=== PATIENT | male | born 1960 ===

== ENCOUNTER 2019-01-21 17:57 | Inpatient (IN) | payer OTHER ==
[2019-01-21 18:30] LABS: Bilirubin,Urine NEG (Negative); Blood,Urine NEG (Negative); Color,Urine Amber (Yellow); Mucus,Urine 3+ /HPF; Urobilinogen,Urine < 2.0 mg/dL (<2.0)
[2019-01-21 18:47] LABS: Hematocrit 45.6 % (35.5-45.6); Hemoglobin 15.2 gm/dl (11.8-15.2); Mean Corpuscular HGB Conc 33 % (32-34); Mean Corpuscular Volume 85 fl (84-94); Platelet Count 207 K/mm3 (140-440); Red Blood Count 5.36 M/mm3 (3.65-5.03); Red Cell Distribution Width 13.7 % (13.2-15.2)
[2019-01-21 19:30] LABS: Alanine Aminotransferase 21 units/L (7-56); Albumin 4.4 g/dL (3.9-5); BUN/Creatinine Ratio 24; Blood Urea Nitrogen 22 mg/dL (9-20); Calcium 9.7 mg/dL (8.4-10.2); Hemolysis Index 6
[2019-01-21 20:15] LABS: Basophils % (Manual) 0 % (0.0-1.8); RBC Morphology Normal; Total Cells Counted 100
[2019-01-21] MEDS ORDERED: DILAUDID IV STA (21:46)
[2019-01-21] MEDS ORDERED: NACL 0.9% 1000 ML IV ONE (21:46)
[2019-01-21] MEDS ORDERED: ZOSYN/NS 4.5GM/100ML 4.5 GM/100 ML VIAL IV ONE (21:49)
--- NOTE | 2019-01-21 21:52 | Emergency Department Report ---
ED General Adult HPI - General Chief complaint: Abdominal Pain Stated complaint: ABD PAIN Time Seen by Provider: 01/21/19 21:38 Source: patient, RN notes reviewed Mode of arrival: Ambulatory Limitations: No Limitations - History of Present Illness Initial comments: This is a pleasant 58-year-old gentleman who is not known to this provider previously. He reports that he does not have a primary care doctor. He reports that he does not have chronic medical conditions. He denies a history of abdominal surgeries. He presents to the emergency room with a complaint of nontraumatic right lower quadrant abdominal pain, present for the past 2 days. The pain is sharp. It increases with palpation. It decreases with rest and position. He's never had pain like this in the past. 2 days ago, it started around the periumbilical region, then moved to the right lower quadrant. He denies headache, neck pain, chest pain, shortness of breath, testicular pain and urinary symptoms. He denies extremity pain. -: Gradual, days(s) Location: abdomen Radiation: abdomen Severity scale (0 -10): 9 Consistency: constant Improves with: rest Worsens with: movement - Related Data Allergies Allergy/AdvReac Type Severity Reaction Status Date / Time No Known Allergies Allergy Unverified 01/21/19 17:58 ED Review of Systems ROS: Stated complaint: ABD PAIN Other details as noted in HPI Constitutional: denies: fever Eyes: denies: eye discharge ENT: denies: epistaxis Respiratory: denies: cough Cardiovascular: denies: chest pain Gastrointestinal: abdominal pain Genitourinary: denies: urgency, dysuria, testicular pain Musculoskeletal: denies: back pain Skin: denies: lesions Neurological: denies: weakness Psychiatric: anxiety ED Past Medical Hx - Past Medical History Previous Medical History?: No - Surgical History Past Surgical History?: No - Social History Smoking Status: Never Smoker Substance Use Type: None ED Physical Exam - General Limitations: No Limitations General appearance: alert, in no apparent distress - Head Head exam: Present: atraumatic, normocephalic - Eye Eye exam: Present: normal appearance, EOMI. Absent: nystagmus - ENT ENT exam: Present: normal exam, normal orophraynx, mucous membranes moist, normal external ear exam - Neck Neck exam: Present: normal inspection, full ROM. Absent: tenderness, meningismus - Respiratory Respiratory exam: Present: normal lung sounds bilaterally. Absent: respiratory distress - Cardiovascular Cardiovascular Exam: Present: regular rate, normal rhythm, normal heart sounds. Absent: bradycardia, tachycardia, irregular rhythm, systolic murmur, diastolic murmur, rubs, gallop - GI/Abdominal GI/Abdominal exam: Present: soft, tenderness, guarding. Absent: distended, rebound, rigid, pulsatile mass - Rectal Rectal exam: Present: deferred - exam: Present: normal inspection, testicular tenderness, other (there is no testicular tenderness. There is normal testicular lie bilaterally. There is normal cremasteric reflex bilaterally.) External exam: Present: normal external exam - Extremities Exam Extremities exam: Present: normal inspection, full ROM, other (2+ pulses noted i n the bilateral upper, lower extremities. Compartments soft. No long bony tenderness. The pelvis is stable.). Absent: pedal edema, joint swelling - Back Exam Back exam: Present: normal inspection, full ROM. Absent: tenderness, CVA tenderness (R), CVA tenderness (L), paraspinal tenderness, vertebral tenderness - Neurological Exam Neurological exam: Present: alert, oriented X3, other (Extraocular movements intact. Tongue midline. No facial droop. Facial sensation intact to light touch in the V1, V2, V3 distribution bilaterally. 5 and 5 strength in 4 extremities.. Sensation is intact to light touch in 4 extremities.). Absent: motor sensory deficit - Psychiatric Psychiatric exam: Present: normal affect, normal mood - Skin Skin exam: Present: warm, dry, intact, normal color. Absent: rash ED Course Vital Signs 01/21/19 01/21/19 17:59 21:34 Temperature 98.3 F 99.5 F Pulse Rate 85 75 Respiratory 16 22 Rate Blood Pressure 147/82 Blood Pressure 143/78 [Right] O2 Sat by Pulse 100 99 Oximetry - Reevaluation(s) Reevaluation #1: 01/21/19 21:51 Differential diagnosis, including the not limited to: Appendicitis, colitis, diverticulitis, perforated viscus, renal colic Assessment and plan: 58-year-old gentleman with probable classic appendicitis. Low grade temperature, initially found to have leukocytosis, heart rate and respiratory rate are reviewed and appreciated. We will make the patient nothing by mouth. He'll be resuscitated according to the sepsis pathway. CT scan of the abdomen and pelvis has been requested. We will discuss with general surgery once his initial diagnostics have resulted. Anticipate admission for presumed appendicitis and abdominal peritonitis. Reevaluation #2: 01/21/19 22:39 Discussed with general surgery on-call, Dr. Tate Ramsey, who agrees with plan of care and indicates her group can follow in consultation, assuming CT scan confirms appendicitis or other surgical process. Reevaluation #3: 01/21/19 23:27 As expected, CT scan suggests acute appendicitis. Gen. surgery, Dr. Ramsey informed Dr. Cano, Hospital physician, to admit patient to the medical service, as for this [facility] policies and procedures. Informed patient of findings. He verbalizes understanding. He requests additional pain medication. ED Medical Decision Making - Lab Data Result diagrams: 01/21/19 18:30 01/21/19 18:30 Vital Signs 01/21/19 01/21/19 17:59 21:34 Temperature 98.3 F 99.5 F Pulse Rate 85 75 Respiratory 16 22 Rate Blood Pressure 147/82 Blood Pressure 143/78 [Right] O2 Sat by Pulse 100 99 Oximetry Lab Results 01/21/19 01/21/19 01/21/19 Range/Units 18:30 18:30 Unknown WBC 20.3 H (4.5-11.0) K/mm3 RBC 5.36 H (3.65-5.03) M/mm3 Hgb 15.2 (11.8-15.2) gm/dl Hct 45.6 (35.5-45.6) % MCV 85 (84-94) fl MCH 28 (28-32) pg MCHC 33 (32-34) % RDW 13.7 (13.2-15.2) % Plt Count 207 (140-440) K/mm3 Add Manual Diff Complete Total Counted 100 Seg Neuts % (Manual) 80.0 H (40.0-70.0) % Band Neutrophils % 0 % Lymphocytes % (Manual) 10.0 L (13.4-35.0) % Reactive Lymphs % (Man) 0 % Monocytes % (Manual) 9.0 H (0.0-7.3) % Eosinophils % (Manual) 1.0 (0.0-4.3) % Basophils % (Manual) 0 (0.0-1.8) % Metamyelocytes % 0 % Myelocytes % 0 % Promyelocytes % 0 % Blast Cells % 0 % Nucleated RBC % Not Reportable Seg Neutrophils # Man 16.2 H (1.8-7.7) K/mm3 Band Neutrophils # 0.0 K/mm3 Lymphocytes # (Manual) 2.0 (1.2-5.4) K/mm3 Abs React Lymphs (Man) 0.0 K/mm3 Monocytes # (Manual) 1.8 H (0.0-0.8) K/mm3 Eosinophils # (Manual) 0.2 (0.0-0.4) K/mm3 Basophils # (Manual) 0.0 (0.0-0.1) K/mm3 Metamyelocytes # 0.0 K/mm3 Myelocytes # 0.0 K/mm3 Promyelocytes # 0.0 K/mm3 Blast Cells # 0.0 K/mm3 WBC Morphology Not Reportable Hypersegmented Neuts Not Reportable Hyposegmented Neuts Not Reportable Hypogranular Neuts Not Reportable Smudge Cells Not Reportable Toxic Granulation Not Reportable Toxic Vacuolation Not Reportable Dohle Bodies Not Reportable Pelger-Huet Anomaly Not Reportable Ivanna Rods Not Reportable Platelet Estimate Not Reportable Clumped Platelets Not Reportable Plt Clumps, EDTA Not Reportable Large Platelets Not Reportable Giant Platelets Not Reportable Platelet Satelliting Not Reportable Plt Morphology Comment Not Reportable RBC Morphology Normal Dimorphic RBCs Not Reportable Polychromasia Not Reportable Hypochromasia Not Reportable Poikilocytosis Not Reportable Anisocytosis Not Reportable Microcytosis Not Reportable Macrocytosis Not Reportable Spherocytes Not Reportable Pappenheimer Bodies Not Reportable Sickle Cells Not Reportable Target Cells Not Reportable Tear Drop Cells Not Reportable Ovalocytes Not Reportable Helmet Cells Not Reportable [place] Bodies Not Reportable [place] Rings Not Reportable [place] Cells Not Reportable Bite Cells Not Reportable Crenated Cell Not Reportable Elliptocytes Not Reportable Acanthocytes (Spur) Not Reportable Rouleaux Not Reportable Hemoglobin C Crystals Not Reportable Schistocytes Not Reportable Malaria parasites Not Reportable [place] Bodies Not Reportable Hem Pathologist Commnt No Sodium 139 (137-145) mmol/L Potassium 4.7 (3.6-5.0) mmol/L Chloride 102.7 (98-107) mmol/L Carbon Dioxide 25 (22-30) mmol/L Anion Gap 16 mmol/L BUN 22 H (9-20) mg/dL Creatinine 0.9 (0.8-1.5) mg/dL Estimated GFR > 60 ml/min BUN/Creatinine Ratio 24 % Glucose 168 H (75-100) mg/dL Calcium 9.7 (8.4-10.2) mg/dL Total Bilirubin 0.80 (0.1-1.2) mg/dL AST 20 (5-40) units/L ALT 21 (7-56) units/L Alkaline Phosphatase 69 (35-129) units/L Total Protein 7.7 (6.3-8.2) g/dL Albumin 4.4 (3.9-5) g/dL Albumin/Globulin Ratio 1.3 % Urine Color Glo (Yellow) Urine Turbidity Slightly-cloudy (Clear) Urine pH 6.0 (5.0-7.0) Ur Specific [place] 1.031 H (1.003-1.030) Urine Protein 30 mg/dl (Negative) mg/dL Urine Glucose (UA) Neg (Negative) mg/dL Urine Ketones 20 (Negative) mg/dL Urine Blood Neg (Negative) Urine Nitrite Neg (Negative) Urine Bilirubin Neg (Negative) Urine Urobilinogen < 2.0 (<2.0) mg/dL Ur Leukocyte Esterase Neg (Negative) Urine WBC (Auto) 1.0 (0.0-6.0) /HPF Urine RBC (Auto) 4.0 (0.0-6.0) /HPF U Epithel Cells (Auto) < 1.0 (0-13.0) /HPF Urine Mucus 3+ /HPF - Radiology Data Radiology results: pending, report reviewed, image reviewed rint Report Referring Physician: SAÚL FATIMA Patient Name: ELIS MAX Date of : 1960 Sex: Male Report Date: 2019-01-21 Report Status: Finalized Findings [address] [address] Cat Scan Report Signed Patient: ELIS MAX MR#: [id number] 33 : 1960 Acct:[id number] Age/Sex: 58 / M ADM Date: 01/21/19 Loc: ED Attending Dr: Ordering Physician: SAÚL FATIMA MD Date of Service: 01/21/19 Procedure(s): CT abdomen pelvis w con Accession Number(s): [id number] cc: SAÚL FATIMA MD PROCEDURE: CT ABDOMEN PELVIS W CON TECHNIQUE: Computerized axial tomography of the abdomen and pelvis was performed after the IV injection of iodinated nonionic contrast. CT DOSE LENGTH PRODUCT: 2738.6 mGycm HISTORY: rlq pain appendicitis COMPARISONS: None . FINDINGS: Visualized lower thorax: No significant abnormality. Liver: Normal size and attenuation. Spleen: Normal size and attenuation. Gallbladder and biliary system: Normal. Pancreas: Normal. Adrenals: Normal. Kidneys: Both kidneys have a normal size. No hydronephrosis. No renal stones. There is a 1 cm lateral left renal cortical cyst.. GI tract: The stomach is normal. The small bowel has normal caliber. No obstruction is seen. Appendix is dilated measuring up to 15 mm. There is a appendicolith. There is periappendiceal fat stranding identified. No other complication. The colon has a normal appearance . Lymph nodes and mesentery: Normal. Vasculature: Normal.. Bladder: Normal. Reproductive organs: Normal. Peritoneum: No free fluid. Musculoskeletal structures: No significant abnormality. Other: None . IMPRESSION: Acute appendicitis with the appendix dilated up to 15 mm. There is periappendiceal fat stranding. . The above findings are discussed with the patient's ER physician at the time of dictation 2321 Eastern standard time on 01/21/2019 This document is electronically signed by Marii London DO., January 21 2019 11:22:28 PM ET Transcribed By: [facility] Dictated By: MARII LONDON MD Electronically Authenticated By: MARII Critical care attestation.: If time is entered above; I have spent that time in minutes in the direct care of this critically ill patient, excluding procedure time. ED Disposition Clinical Impression: Acute appendicitis Qualifiers: Acute appendicitis type: with localized peritonitis Appendicitis gangrene presence: unspecified whether gangrene present Appendicitis perforation presence: unspecified whether perforation present Appendicitis abscess presence: without abscess Qualified Code(s): K35.30 - Acute appendicitis with localized peritonitis, without perforation or gangrene Disposition: OP ADMIT IP TO THIS HOSP Is pt being admited?: Yes Does the pt Need Aspirin: No Condition: Good [facility] [Primary Care Provider] - 3-5 Days
--- NOTE | 2019-01-21 23:24 | Cat Scan Report ---
PROCEDURE: CT ABDOMEN PELVIS W CON TECHNIQUE: Computerized axial tomography of the abdomen and pelvis was performed after the IV inject ion of iodinated nonionic contrast. CT DOSE LENGTH PRODUCT: 2738.6 mGycm HISTORY: rlq pain appendicitis COMPARISONS: None . FINDINGS: Visualized lower thorax: No significant abnormality. Liver: Normal size and attenuation. Spleen: Normal size and attenuation. Gallbladder and biliary system: Normal. Pancreas: Normal. Adrenals: Normal. Kidneys: Both kidneys have a normal size. No hydronephrosis. No renal stones. There is a 1 cm lateral left renal cortical cyst.. GI tract: The stomach is normal. The small bowel has normal caliber. No obstruction is seen. Appendi x is dilated measuring up to 15 mm. There is a appendicolith. There is periappendiceal fat stranding identified. No other complication. The colon has a normal appearance . Lymph nodes and mesentery: Normal. Vasculature: Normal.. Bladder: Normal. Reproductive organs: Normal. Peritoneum: No free fluid. Musculoskeletal structures: No significant abnormality. Other: None . IMPRESSION: Acute appendicitis with the appendix dilated up to 15 mm. There is periappendiceal fat s tranding. . The above findings are discussed with the patient's ER physician at the time of dictation 2321 [place] [address] standard time on 01/21/2019 This document is electronically signed by Marii London DO., January 21 2019 11:22:28 PM ET
[2019-01-21] MEDS ORDERED: MORPHINE IV ONE (23:27)
--- NOTE | 2019-01-21 23:32 | History and Physical Report ---
History of Present Illness Date of examination: 01/21/19 History of present illness: 58 -year-old man with no medical problems comes emergency room with complaints of abdominal pain that started 2 days ago located in the right lower quadrant which he describes a pressure-like sensation, intermittent to her 5 minutes, in tensity 7/10, no radiation, cannot identify exacerbating or relieving factors. He denies any fever or chills Review of systems Constitutional: no weight loss, chills, fever Ears, eyes, nose, mouth and throat: no nasal congestion, no nasal discharge, no sinus pressure, no vision change, no red eye. Neck: No neck pain or rigidity. Cardiovascular: no palpitations, chest pain Respiratory: no cough, shortness of breath Gastrointestinal: no hematochezia, +abdominal pain Genitourinary : no frequency , no hematuria Musculoskeletal: no joint swelling or muscle ache Integumentary: no rash, no pruritis Neurological: no parathesias, no focal weakness Endocrine: no cold or heat intolerance, no polyuria or polydipsia Hematologic/Lymphatic: no easy bruising, no easy bleeding, no gland swelling Allergic/Immunologic: no urticaria, no angioedema. PAST MEDICAL HISTORY:None PAST SURGICAL HISTORY: None SOCIAL HISTORY: Denies alcohol, drugs, tobacco FAMILY HISTORY: Hypertension Medications and Allergies Allergies Allergy/AdvReac Type Severity Reaction Status Date / Time No Known Allergies Allergy Verified 01/21/19 23:37 Exam - Physical Exam Narrative exam: General Apperance: The patient lying in bed, breathing comfortable HEENT: Normocephalic, atraumatic. Pupils equally round and reactive to light, EOMI, no sclericterus or JVD or thyromegaly or nodule. , no carotid bruit, mucous membranes moist, no exudate or erythema Heart: S1-S2, regular is rhythm Lungs: Clear to auscultation bilaterally, breathing comfortable Abdomen: Positive bowel sounds, soft, tender in RLQ, nondistended, no organomegaly Extremities: No edema cyanosis clubbing Skin: no rash, nodule, warm and dry Neuro: cranial nerves 2-12 intact, speech is fluent, motor/sensory intact - Constitutional Vitals: Temp Pulse Resp BP Pulse Ox 99.5 F 75 22 143/78 99 01/21/19 21:34 01/21/19 21:34 01/21/19 21:34 01/21/19 21:34 01/21/19 21:34 Results - Labs CBC & Chem 7: 01/21/19 18:30 01/21/19 18:30 Labs: Abnormal lab results 01/21/19 01/21/19 01/21/19 Range/Units 18:30 18:30 21:51 WBC 20.3 H (4.5-11.0) K/mm3 RBC 5.36 H (3.65-5.03) M/mm3 Seg Neuts % (Manual) 80.0 H (40.0-70.0) % Lymphocytes % (Manual) 10.0 L (13.4-35.0) % Monocytes % (Manual) 9.0 H (0.0-7.3) % Seg Neutrophils # Man 16.2 H (1.8-7.7) K/mm3 Monocytes # (Manual) 1.8 H (0.0-0.8) K/mm3 BUN 22 H (9-20) mg/dL Glucose 168 H (75-100) mg/dL Total Creatine Kinase 262 H (55-170) units/L Ur Specific [place] (1.003-1.030) 01/21/19 Range/Units Unknown WBC (4.5-11.0) K/mm3 RBC (3.65-5.03) M/mm3 Seg Neuts % (Manual) (40.0-70.0) % Lymphocytes % (Manual) (13.4-35.0) % Monocytes % (Manual) (0.0-7.3) % Seg Neutrophils # Man (1.8-7.7) K/mm3 Monocytes # (Manual) (0.0-0.8) K/mm3 BUN (9-20) mg/dL Glucose (75-100) mg/dL Total Creatine Kinase (55-170) units/L Ur Specific [place] 1.031 H (1.003-1.030) - Imaging and Cardiology EKG: image reviewed CT scan - abdomen: report reviewed CT scan - pelvis: report reviewed Assessment and Plan Assessment Acute Appendicitis Plan admit to medicine Placed on bowel rest, IV fluids, IV Zosyn, and surgery was consulted to see the patient IV morphine, DVT prophylaxis
[2019-01-22] MEDS ORDERED: MORPHINE ONE (00:34)
[2019-01-22] MEDS ORDERED: TYLENOL PO PRN (00:48)
[2019-01-22] MEDS ORDERED: ZOFRAN IV PRN ×2 (00:48→10:10)
[2019-01-22] MEDS ORDERED: SODIUM CHLORIDE FLUSH SYRINGE 10 ML IV PRN (00:48)
[2019-01-22] MEDS ORDERED: NACL 0.9% 1000 ML 1,000 ML IV SCH (01:00)
[2019-01-22] MEDS: MORPHINE IV PRN ×2 (02:45→07:06)
[2019-01-22] MEDS: ZOSYN/NS 4.5GM/100ML 4.5 GM/100 ML VIAL IV SCH ×3 (05:16→21:11)
[2019-01-22 05:22] LABS: Basophils % (Auto) 0.1 % (0.0-1.8); Hematocrit 38.8 % (35.5-45.6); Hemoglobin 12.9 gm/dl (11.8-15.2); Lymphocytes # (Auto) 1.4 K/mm3 (1.2-5.4); Lymphocytes % (Auto) 6.8 % (13.4-35.0); Mean Corpuscular HGB Conc 33 % (32-34); Mean Corpuscular Volume 86 fl (84-94); Monocytes # (Auto) 1.9 K/mm3 (0.0-0.8); Monocytes % (Auto) 9.3 % (0.0-7.3); Platelet Count 172 K/mm3 (140-440); Red Blood Count 4.53 M/mm3 (3.65-5.03); Red Cell Distribution Width 13.8 % (13.2-15.2)
[2019-01-22 05:47] LABS: BUN/Creatinine Ratio 19; Blood Urea Nitrogen 15 mg/dL (9-20); Calcium 7.8 mg/dL (8.4-10.2); Hemolysis Index 4
[2019-01-22] MEDS ORDERED: VANCOMYCIN/NS 1 GM/250 ML 1 GM/250 ML BAG IV ONE (06:41)
--- NOTE | 2019-01-22 09:21 | Consultation ---
History of Present Illness Consult date: 01/22/19 Reason for consult: abdominal pain Requesting physician: RIK CABRALES Chief complaint: RLQ pain - History of present illness History of present illness: 58yo M otherwise healthy since with a two-day history of right lower quadrant pain. Denies any nausea or vomiting. Pain has been progressively worse. Has had fevers. denies any chills. He presented last night to the ED for evaluation. CT scan evaluation showed appendicitis without perforation. General surgery was counseled. Patient reports that pain is significant right lower quadrant. Has no other complaints at this time. Past History Past Medical History: No medical history Past Surgical History: No surgical history Social history: denies: smoking, alcohol abuse, prescription drug abuse, IV drug use Family history: no significant family history Medications and Allergies Allergies Allergy/AdvReac Type Severity Reaction Status Date / Time No Known Allergies Allergy Verified 01/21/19 23:37 Home Medications Medication Instructions Recorded Confirmed Last Taken Type No Known Home Medications [No 01/22/19 01/22/19 Unknown History Reported Home Medications] Active Meds: Active Medications Acetaminophen (Tylenol) 650 mg PO Q4H PRN PRN Reason: Pain MILD(1-3)/Fever >100.5/CLARK Last Admin: 01/22/19 03:05 Dose: 650 mg Documented by: Hydromorphone HCl (Dilaudid) 0.5 mg IV Q3H PRN PRN Reason: Pain , Severe (7-10) Sodium Chloride (Nacl 0.9% 1000 Ml) 1,000 mls @ 150 mls/hr IV DIRECT BILLY Last Admin: 01/22/19 02:15 Dose: 150 mls/hr Documented by: Piperacillin Sod/Tazobactam Sod (Zosyn/Ns 4.5gm/100ml) 4.5 gm in 100 mls @ 200 mls/hr IV Q8HR BILLY; Protocol Last Admin: 01/22/19 05:16 Dose: 200 mls/hr Documented by: Morphine Sulfate (Morphine) 2 mg IV Q4H PRN PRN Reason: Pain, Moderate (4-6) Last Admin: 01/22/19 07:06 Dose: 2 mg Documented by: Ondansetron HCl (Zofran) 4 mg IV Q8H PRN PRN Reason: Nausea And Vomiting Sodium Chloride (Sodium Chloride Flush Syringe 10 Ml) 10 ml IV BID BILLY Sodium Chloride (Sodium Chloride Flush Syringe 10 Ml) 10 ml IV PRN PRN PRN Reason: LINE FLUSH Review of Systems - Constitutional fever, no chills, no chronic pain - Cardiovascular no chest pain, no shortness of breath - Respiratory no cough - Gastrointestinal abdominal pain, no nausea, no vomiting, no diarrhea, no constipation, no hematemesis, no coffee ground emesis, no BRBPR, no melena, no hematochezia, no dyspepsia/bloating - Genitourinary no dysuria - Muskuloskeletal no low back pain Exam Vital Signs Temp Pulse Resp BP Pulse Ox 98.3 F 85 16 147/82 100 01/21/19 17:59 01/21/19 17:59 01/21/19 17:59 01/21/19 17:59 01/21/19 17:59 - General physical appearance Positive: no distress, no pain - Eyes Positive: normal occular movement. Negative: icteric - Respiratory Positive: normal expansion, normal respiratory effort - Cardiovascular Rhythm: regular - Abdomen Abdomen: Present: soft, tender (in the RLQ), bowel sounds hypoactive. Absent: distended, guarding, rigid, wound, surgical scars - Integumentary no rash, no growths, no abnormal pigmentation - Neurologic Neurologic: alert and oriented to time, place and person, motor strength and sensation are grossly intact - Psychiatric Psychiatric: appropriate mood/affect, intact judgment & insight, cooperative Results - Labs 01/22/19 04:47 01/22/19 04:47 Abnormal lab results 01/21/19 01/21/19 01/21/19 Range/Units 18:30 18:30 21:51 WBC 20.3 H (4.5-11.0) K/mm3 RBC 5.36 H (3.65-5.03) M/mm3 Lymph % (Auto) (13.4-35.0) % Petroleum % (Auto) (0.0-7.3) % Petroleum # (0.0-0.8) K/mm3 Seg Neutrophils % (40.0-70.0) % Seg Neuts % (Manual) 80.0 H (40.0-70.0) % Lymphocytes % (Manual) 10.0 L (13.4-35.0) % Monocytes % (Manual) 9.0 H (0.0-7.3) % Seg Neutrophils # (1.8-7.7) K/mm3 Seg Neutrophils # Man 16.2 H (1.8-7.7) K/mm3 Monocytes # (Manual) 1.8 H (0.0-0.8) K/mm3 Carbon Dioxide (22-30) mmol/L BUN 22 H (9-20) mg/dL Glucose 168 H (75-100) mg/dL POC Glucose (70-105) Calcium (8.4-10.2) mg/dL Total Creatine Kinase 262 H (55-170) units/L Ur Specific [place] (1.003-1.030) 01/21/19 01/22/19 01/22/19 Range/Units Unknown 04:47 04:47 WBC 20.1 H (4.5-11.0) K/mm3 RBC (3.65-5.03) M/mm3 Lymph % (Auto) 6.8 L (13.4-35.0) % Petroleum % (Auto) 9.3 H (0.0-7.3) % Petroleum # 1.9 H (0.0-0.8) K/mm3 Seg Neutrophils % 83.8 H (40.0-70.0) % Seg Neuts % (Manual) (40.0-70.0) % Lymphocytes % (Manual) (13.4-35.0) % Monocytes % (Manual) (0.0-7.3) % Seg Neutrophils # 16.8 H (1.8-7.7) K/mm3 Seg Neutrophils # Man (1.8-7.7) K/mm3 Monocytes # (Manual) (0.0-0.8) K/mm3 Carbon Dioxide 20 L (22-30) mmol/L BUN (9-20) mg/dL Glucose 131 H (75-100) mg/dL POC Glucose (70-105) Calcium 7.8 L D (8.4-10.2) mg/dL Total Creatine Kinase (55-170) units/L Ur Specific [place] 1.031 H (1.003-1.030) 01/22/19 Range/Units 08:31 WBC (4.5-11.0) K/mm3 RBC (3.65-5.03) M/mm3 Lymph % (Auto) (13.4-35.0) % Petroleum % (Auto) (0.0-7.3) % Petroleum # (0.0-0.8) K/mm3 Seg Neutrophils % (40.0-70.0) % Seg Neuts % (Manual) (40.0-70.0) % Lymphocytes % (Manual) (13.4-35.0) % Monocytes % (Manual) (0.0-7.3) % Seg Neutrophils # (1.8-7.7) K/mm3 Seg Neutrophils # Man (1.8-7.7) K/mm3 Monocytes # (Manual) (0.0-0.8) K/mm3 Carbon Dioxide (22-30) mmol/L BUN (9-20) mg/dL Glucose (75-100) mg/dL POC Glucose 122 H (70-105) Calcium (8.4-10.2) mg/dL Total Creatine Kinase (55-170) units/L Ur Specific [place] (1.003-1.030) Diabetes panel 01/21/19 01/22/19 Range/Units 18:30 04:47 Sodium 139 138 (137-145) mmol/L Potassium 4.7 3.6 D (3.6-5.0) mmol/L Chloride 102.7 106.9 (98-107) mmol/L Carbon Dioxide 25 20 L (22-30) mmol/L BUN 22 H 15 (9-20) mg/dL Creatinine 0.9 0.8 (0.8-1.5) mg/dL Glucose 168 H 131 H (75-100) mg/dL Calcium 9.7 7.8 L D (8.4-10.2) mg/dL AST 20 (5-40) units/L ALT 21 (7-56) units/L Alkaline Phosphatase 69 (35-129) units/L Total Protein 7.7 (6.3-8.2) g/dL Albumin 4.4 (3.9-5) g/dL Calcium panel 01/21/19 01/22/19 Range/Units 18:30 04:47 Calcium 9.7 7.8 L D (8.4-10.2) mg/dL Albumin 4.4 (3.9-5) g/dL Pituitary panel 01/21/19 01/22/19 Range/Units 18:30 04:47 Sodium 139 138 (137-145) mmol/L Potassium 4.7 3.6 D (3.6-5.0) mmol/L Chloride 102.7 106.9 (98-107) mmol/L Carbon Dioxide 25 20 L (22-30) mmol/L BUN 22 H 15 (9-20) mg/dL Creatinine 0.9 0.8 (0.8-1.5) mg/dL Glucose 168 H 131 H (75-100) mg/dL Calcium 9.7 7.8 L D (8.4-10.2) mg/dL Adrenal panel 01/21/19 01/22/19 Range/Units 18:30 04:47 Sodium 139 138 (137-145) mmol/L Potassium 4.7 3.6 D (3.6-5.0) mmol/L Chloride 102.7 106.9 (98-107) mmol/L Carbon Dioxide 25 20 L (22-30) mmol/L BUN 22 H 15 (9-20) mg/dL Creatinine 0.9 0.8 (0.8-1.5) mg/dL Glucose 168 H 131 H (75-100) mg/dL Calcium 9.7 7.8 L D (8.4-10.2) mg/dL Total Bilirubin 0.80 (0.1-1.2) mg/dL AST 20 (5-40) units/L ALT 21 (7-56) units/L Alkaline Phosphatase 69 (35-129) units/L Total Protein 7.7 (6.3-8.2) g/dL Albumin 4.4 (3.9-5) g/dL - Imaging CT scan - abdomen: report reviewed, image reviewed CT scan - pelvis: report reviewed, image reviewed Assessment and Plan - Patient Problems (1) Acute appendicitis Current Visit: Yes Status: Acute Qualifiers: Acute appendicitis type: with localized peritonitis Appendicitis gangrene presence: unspecified whether gangrene present Appendicitis perforation presence: unspecified whether perforation present Appendicitis abscess presence: without abscess Qualified Code(s): K35.30 - Acute appendicitis with localized peritonitis, without perforation or gangrene Plan to address problem: Pt stable. Clinical exam, history, CT scan are all consistent with acute appendicitis. There does not appear to be a perforation. However, patient does have significant infection with a white count of 20. Will proceed SHAZIA to the operating room. Procedure, risks, benefits were discussed with the patient all questions were answered. Consent was obtained. Time=30min
[2019-01-22] MEDS: SODIUM CHLORIDE FLUSH SYRINGE 10 ML IV SCH ×2 (09:25→21:11)
[2019-01-22] MEDS ORDERED: DILAUDID IV PRN ×2 (09:30→10:10)
[2019-01-22] MEDS ORDERED: LACTATED RINGERS 1,000 ML IV ONE (10:00)
[2019-01-22] MEDS ORDERED: LOVENOX SUB-Q SCH ×2 (10:00)
--- NOTE | 2019-01-22 10:09 | Anesthesia Consultation ---
Anesthesia Consult and Med Hx Date of service: 01/22/19 - Airway Anesthetic Teeth Evaluation: Good ROM Head & Neck: Adequate Mental/Hyoid Distance: Adequate Mallampati Class: Class II Intubation Access Assessment: Good - Pulmonary Exam CTA: Yes - Cardiac Exam Cardiac Exam: RRR - Pre-Operative Health Status ASA Pre-Surgery Classification: ASA2 Proposed Anesthetic Plan: General (no past medical issues , does not follow any PCP ) - Central Nervous System Hx Psychiatric Problems: No - Other Systems Hx Cancer: No
--- NOTE | 2019-01-22 10:09 | Anesthesia Day of Surgery ---
Anesthesia Day of Surgery - Day of Surgery Patient Examined: Yes Patient H&P Reviewed: Yes Patient is NPO: Yes
[2019-01-22] MEDS ORDERED: LACTATED RINGERS 1,000 ML ONE ×2 (10:15→12:45)
[2019-01-22] MEDS ORDERED: TYLENOL ONE (10:15)
[2019-01-22] MEDS: LACTATED RINGERS 1,000 ML IV SCH ×3 (10:18→18:31)
[2019-01-22] MEDS ORDERED: MARCAINE 0.25% INFILTRATI ONE ×2 (10:27→11:21)
[2019-01-22] MEDS ORDERED: XYLOCAINE 1% 20 mL ONE ×2 (10:27→11:22)
[2019-01-22] MEDS ORDERED: TYLENOL PO NR (11:00)
[2019-01-22] MEDS ORDERED: XYLOCAINE MPF 2% ONE (11:22)
[2019-01-22] MEDS ORDERED: DIPRIVAN 10 MG/ML IV ONE (11:22)
[2019-01-22] MEDS ORDERED: DILAUDID ONE (11:22)
[2019-01-22] MEDS ORDERED: ZEMURON IV ONE (11:23)
[2019-01-22] MEDS ORDERED: QUELICIN ONE (11:23)
[2019-01-22] MEDS ORDERED: NACL 0.9% IR ONE (12:13)
[2019-01-22] MEDS ORDERED: XYLOCAINE 1% 20 mL INFILTRATI ONE (12:13)
[2019-01-22] MEDS ORDERED: MARCAINE-EPI 0.25%-1:200,000 INFILTRATI ONE (12:13)
[2019-01-22] MEDS ORDERED: ROBINUL ONE (12:45)
[2019-01-22] MEDS ORDERED: ZOFRAN ONE (12:45)
[2019-01-22] MEDS ORDERED: TORADOL ONE ×2 (12:45)
[2019-01-22] MEDS ORDERED: BLOXIVERZ ONE (12:45)
[2019-01-22] MEDS ORDERED: NORCO 5/325 PO PRN (13:06)
--- NOTE | 2019-01-22 13:12 | Post Operative Note ---
Date of procedure: 01/22/19 (dictation:[id number]) Pre-op diagnosis: acute appendicitis Post-op diagnosis: other (acute gangrenous appendicitis) Findings: necrotic appendix with small amount of localized purulent fluid Procedure: lap appy Anesthesia: GETA Surgeon: RAMÍREZ RICH Estimated blood loss: 50-100ml Pathology: list (appendix) Specimen disposition: to lab Condition: stable Disposition: PACU
--- NOTE | 2019-01-22 13:53 | Operative Report ---
PREOPERATIVE DIAGNOSIS: Acute appendicitis. POSTOPERATIVE DIAGNOSIS: Acute gangrenous appendicitis. PROCEDURE: Laparoscopic appendectomy. ATTENDING SURGEON: Yamilet Crews MD ANESTHESIA: General. ESTIMATED BLOOD LOSS: Approximately 50 mL. FLUIDS: 1400 mL FINDINGS: Thickened inflamed appendix with necrosis of the distal half. Small bowel was densely adhered to the appendix and to the right pelvic sidewall. Small amount of purulent fluid was seen in the right lower quadrant. The rest of the abdomen was clean. Indirect right inguinal hernia was identified. SPECIMENS: Appendix. DRAINS: None. COMPLICATIONS: None. DISPOSITION: Stable, transferred to recovery room. INDICATIONS: This is a 58-year-old male who presented with a 2-day history of right lower quadrant pain. CT scan showed a dilated appendix, but no evidence of any perforation. The patient was assessed to be in need for appendectomy. Procedure, risks, and benefits were explained to the patient. Risks included but were not limited to infection, bleeding, pain, injury to surrounding structures, possible open surgery, and possible need for further procedures in the future. The patient understood and consented. DESCRIPTION OF PROCEDURE: The patient was brought to the operating room and placed on the table in supine position. After adequate general anesthesia was established, the patient was prepped and draped in the usual sterile fashion. Antibiotics had been administered prior to the start of the case. SCDs were in place. Time-out was called. I began by placing a Veress needle in the left upper quadrant and I was able to insufflate in the first attempt. A 5-mm port was placed at the umbilicus using the Optiview technique. I entered safely. The area under the Veress needle had no signs of injury. Veress needle was removed. We placed a 12-mm port in the left lower quadrant, another 5-mm port in the suprapubic area both under direct vision. Later during the case, we ended up placing a 5-mm port in the right upper quadrant. Initially, it was difficult to identify the appendix. The small bowel was draped over it. Based on the CT scan, I had a rough idea where the appendix was, therefore I gently mobilized the small bowel. We took down the adhesions and then we began to see parts of the appendix. This was densely adhered to the sidewall. With a combination of LigaSure dissection and blunt dissection, I was able to peel it off the sidewall. In a stepwise fashion, I took down the adhesions with the LigaSure device. We cleaned off and identified the appendix itself and then followed it down to the base. Extra time was required as this was a difficult dissection. The appendix, colon, and small bowel were all adhesed together. I was able to free up the base. We divided the mesoappendix with the LigaSure device and then divided the base with a laparoscopic stapler using a blue load 45 mm. We had a flush line with the cecum. There was no drainage and no bleeding. Appendix was placed in the EndoCatch bag and left on the side. We thoroughly irrigated out the right gutter and pelvis. We changed the position of the patient a few times to try to clean out the right side completely. There was no fluid on the left. Of note, we did see an indirect right inguinal hernia. I could not identify the exact opening on the left. It appeared to be okay. However, postoperatively, when we were cleaning up, we noticed that both halves of the scrotum were inflated, so there must be some small opening on the left side as well that was perhaps obscured by some of the bowel. In any event, we thoroughly irrigated out the abdomen with 2 liters of fluid. Everything looked very good. There was very little purulent material in retrospect, therefore I did not place a drain in that area. EndoCatch bag was removed from the left lower quadrant site. I had to stretch the fascia a little bit in order to get it out. We closed that left lower quadrant port site with a Romie-Halina fascial closure device. I had to use 2-0 Vicryl stitches to close it, but we did get an airtight closure. Additional local was injected into all the sites. We had done it at the start as well. The other ports were removed under direct vision. We desufflated the abdomen. I then closed all the skin sites with 4-0 Monocryl subcuticular stitches. Skin was cleaned and dried. Dermabond was placed. The patient tolerated the procedure well. There were no complications. All counts were correct at the end of the case. JOB# [id number] COREY/MAICOL
--- NOTE | 2019-01-22 14:06 | Progress Note ---
Assessment and Plan Assessment and plan: --Acute gangrenous Appendicitis: s/p Lap appendectomy IV antibiotics, fluids and ,painmeds and supportive care Clear liquids tolerated, postoperative care --Febrile illness/sepsis; secondary to gangrenous appendix DVT prophylaxis: SCD History Interval history: Patient seen and examined medical records reviewed Patient admitted with acute gangrenous appendicitis, underwent laparoscopic appendectomy Patient spiked fever up, MAXIMUM TEMPERATURE 102f Vital signs noted Hospitalist Physical - Constitutional Vitals: Temp Pulse Resp BP Pulse Ox 97.8 F 88 14 107/69 95 01/22/19 13:55 01/22/19 13:55 01/22/19 13:55 01/22/19 13:55 01/22/19 13:55 General appearance: Present: no acute distress, well-nourished, obese - EENT Eyes: Present: PERRL, EOM intact - Neck Neck: Present: supple, normal ROM - Respiratory Respiratory effort: normal Respiratory: bilateral: diminished, negative: rales, rhonchi, wheezing - Cardiovascular Rhythm: regular Heart Sounds: Present: S1 & S2 - Extremities Extremities: no ischemia, No edema - Abdominal General gastrointestinal: soft, tender, normal bowel sounds - Integumentary Integumentary: Present: clear, warm - Psychiatric Psychiatric: appropriate mood/affect, cooperative - Neurologic Neurologic: CNII-XII intact, moves all extremities Results - Labs CBC & Chem 7: 01/22/19 04:47 01/22/19 04:47 Labs: Laboratory Last Values WBC 20.1 K/mm3 (4.5-11.0) H 01/22/19 04:47 RBC 4.53 M/mm3 (3.65-5.03) 01/22/19 04:47 Hgb 12.9 gm/dl (11.8-15.2) 01/22/19 04:47 Hct 38.8 % (35.5-45.6) D 01/22/19 04:47 MCV 86 fl (84-94) 01/22/19 04:47 MCH 29 pg (28-32) 01/22/19 04:47 MCHC 33 % (32-34) 01/22/19 04:47 RDW 13.8 % (13.2-15.2) 01/22/19 04:47 Plt Count 172 K/mm3 (140-440) 01/22/19 04:47 Lymph % (Auto) 6.8 % (13.4-35.0) L 01/22/19 04:47 [place] % (Auto) 9.3 % (0.0-7.3) H 01/22/19 04:47 Eos % (Auto) 0.0 % (0.0-4.3) 01/22/19 04:47 Baso % (Auto) 0.1 % (0.0-1.8) 01/22/19 04:47 Lymph # 1.4 K/mm3 (1.2-5.4) 01/22/19 04:47 [place] # 1.9 K/mm3 (0.0-0.8) H 01/22/19 04:47 Eos # 0.0 K/mm3 (0.0-0.4) 01/22/19 04:47 Baso # 0.0 K/mm3 (0.0-0.1) 01/22/19 04:47 Add Manual Diff Complete 01/21/19 18:30 Total Counted 100 01/21/19 18:30 Seg Neutrophils % 83.8 % (40.0-70.0) H 01/22/19 04:47 Seg Neuts % (Manual) 80.0 % (40.0-70.0) H 01/21/19 18:30 0 % 01/21/19 18:30 10.0 % (13.4-35.0) L 01/21/19 18:30 Reactive Lymphs % (Man) 0 % 01/21/19 18:30 9.0 % (0.0-7.3) H 01/21/19 18:30 1.0 % (0.0-4.3) 01/21/19 18:30 0 % (0.0-1.8) 01/21/19 18:30 0 % 01/21/19 18:30 0 % 01/21/19 18:30 0 % 01/21/19 18:30 0 % 01/21/19 18:30 Nucleated RBC % Not Reportable 01/21/19 18:30 Seg Neutrophils # 16.8 K/mm3 (1.8-7.7) H 01/22/19 04:47 Seg Neutrophils # Man 16.2 K/mm3 (1.8-7.7) H 01/21/19 18:30 Band Neutrophils # 0.0 K/mm3 01/21/19 18:30 2.0 K/mm3 (1.2-5.4) 01/21/19 18:30 Abs React Lymphs (Man) 0.0 K/mm3 01/21/19 18:30 1.8 K/mm3 (0.0-0.8) H 01/21/19 18:30 0.2 K/mm3 (0.0-0.4) 01/21/19 18:30 0.0 K/mm3 (0.0-0.1) 01/21/19 18:30 0.0 K/mm3 01/21/19 18:30 0.0 K/mm3 01/21/19 18:30 0.0 K/mm3 01/21/19 18:30 Blast Cells # 0.0 K/mm3 01/21/19 18:30 WBC Morphology Not Reportable 01/21/19 18:30 Hypersegmented Neuts Not Reportable 01/21/19 18:30 Hyposegmented Neuts Not Reportable 01/21/19 18:30 Hypogranular Neuts Not Reportable 01/21/19 18:30 Not Reportable 01/21/19 18:30 Not Reportable 01/21/19 18:30 Not Reportable 01/21/19 18:30 Not Reportable 01/21/19 18:30 Not Reportable 01/21/19 18:30 Not Reportable 01/21/19 18:30 Not Reportable 01/21/19 18:30 Not Reportable 01/21/19 18:30 Plt Clumps, EDTA Not Reportable 01/21/19 18:30 Not Reportable 01/21/19 18:30 Not Reportable 01/21/19 18:30 Not Reportable 01/21/19 18:30 Plt Morphology Comment Not Reportable 01/21/19 18:30 RBC Morphology Normal 01/21/19 18:30 Dimorphic RBCs Not Reportable 01/21/19 18:30 Not Reportable 01/21/19 18:30 Not Reportable 01/21/19 18:30 Not Reportable 01/21/19 18:30 Not Reportable 01/21/19 18:30 Not Reportable 01/21/19 18:30 Not Reportable 01/21/19 18:30 Not Reportable 01/21/19 18:30 Not Reportable 01/21/19 18:30 Not Reportable 01/21/19 18:30 Not Reportable 01/21/19 18:30 Not Reportable 01/21/19 18:30 Not Reportable 01/21/19 18:30 Not Reportable 01/21/19 18:30 Not Reportable 01/21/19 18:30 Not Reportable 01/21/19 18:30 Not Reportable 01/21/19 18:30 Not Reportable 01/21/19 18:30 Not Reportable 01/21/19 18:30 Not Reportable 01/21/19 18:30 Acanthocytes (Spur) Not Reportable 01/21/19 18:30 Rouleaux Not Reportable 01/21/19 18:30 Not Reportable 01/21/19 18:30 Not Reportable 01/21/19 18:30 Not Reportable 01/21/19 18:30 Not Reportable 01/21/19 18:30 Hem Pathologist Commnt No 01/21/19 18:30 Sodium 138 mmol/L (137-145) 01/22/19 04:47 Potassium 3.6 mmol/L (3.6-5.0) D 01/22/19 04:47 Chloride 106.9 mmol/L (98-107) 01/22/19 04:47 Carbon Dioxide 20 mmol/L (22-30) L 01/22/19 04:47 15 mmol/L 01/22/19 04:47 BUN 15 mg/dL (9-20) 01/22/19 04:47 0.8 mg/dL (0.8-1.5) 01/22/19 04:47 Estimated GFR > 60 ml/min 01/22/19 04:47 19 % 01/22/19 04:47 Glucose 131 mg/dL (75-100) H 01/22/19 04:47 POC Glucose 122 (70-105) H 01/22/19 08:31 Lactic Acid 1.40 mmol/L (0.7-2.0) 01/22/19 00:44 Calcium 7.8 mg/dL (8.4-10.2) L D 01/22/19 04:47 Magnesium 2.20 mg/dL (1.7-2.3) 01/21/19 21:51 0.80 mg/dL (0.1-1.2) 01/21/19 18:30 AST 20 units/L (5-40) 01/21/19 18:30 ALT 21 units/L (7-56) 01/21/19 18:30 69 units/L (35-129) 01/21/19 18:30 262 units/L (55-170) H 01/21/19 21:51 7.7 g/dL (6.3-8.2) 01/21/19 18:30 4.4 g/dL (3.9-5) 01/21/19 18:30 1.3 % 01/21/19 18:30 Glo (Yellow) 01/21/19 Unknown Slightly-cloudy (Clear) 01/21/19 Unknown 6.0 (5.0-7.0) 01/21/19 Unknown Ur Specific [place] 1.031 (1.003-1.030) H 01/21/19 Unknown 30 mg/dl mg/dL (Negative) 01/21/19 Unknown Neg mg/dL (Negative) 01/21/19 Unknown 20 mg/dL (Negative) 01/21/19 Unknown Neg (Negative) 01/21/19 Unknown Neg (Negative) 01/21/19 Unknown Neg (Negative) 01/21/19 Unknown < 2.0 mg/dL (<2.0) 01/21/19 Unknown Ur Leukocyte Esterase Neg (Negative) 01/21/19 Unknown 1.0 /HPF (0.0-6.0) 01/21/19 Unknown 4.0 /HPF (0.0-6.0) 01/21/19 Unknown U Epithel Cells (Auto) < 1.0 /HPF (0-13.0) 01/21/19 Unknown 3+ /HPF 01/21/19 Unknown Active Medications - Current Medications Current Medications: Generic Name Dose Route Start Last Admin Trade Name Freq PRN Reason Stop Dose Admin Acetaminophen 650 mg 01/22/19 00:48 01/22/19 03:05 Tylenol PO 650 mg Q4H PRN Administration Pain MILD(1-3)/Fever >100.5/CLARK Acetaminophen 650 mg 01/22/19 11:00 01/22/19 10:18 Tylenol PO 01/23/19 23:59 650 mg PREOP NR Administration Acetaminophen/Hydrocodone Bitart 2 each 01/22/19 13:06 [place] 5/325 PO Q6H PRN Pain, Moderate (4-6) Hydromorphone HCl 0.5 mg 01/22/19 09:30 Dilaudid IV Q3H PRN Pain , Severe (7-10) Hydromorphone HCl 0.5 mg 01/22/19 10:10 Dilaudid IV 01/22/19 23:59 Q10MIN PRN Pain , Severe (7-10) Sodium Chloride 1,000 mls @ 150 mls/hr 01/22/19 01:00 01/22/19 02:15 Nacl 0.9% 1000 Ml IV 150 mls/hr DIRECT BILLY Administration Piperacillin Sod/Tazobactam Sod 4.5 gm in 100 mls @ 200 mls/hr 01/22/19 06:00 01/22/19 05:16 Zosyn/Ns 4.5gm/100ml IV 200 mls/hr Q8HR BILLY Administration Protocol Lactated Ringer's 1,000 mls @ 75 mls/hr 01/22/19 11:00 01/22/19 11:11 Lactated Ringers IV 75 mls/hr DIRECT BILLY Administration Ketorolac Tromethamine 30 mg 01/22/19 18:00 Toradol IV 01/27/19 17:59 Q6HR BILLY Morphine Sulfate 2 mg 01/22/19 00:48 01/22/19 07:06 Morphine IV 2 mg Q4H PRN Administration Pain, Moderate (4-6) Ondansetron HCl 4 mg 01/22/19 00:48 Zofran IV Q8H PRN Nausea And Vomiting Ondansetron HCl 4 mg 01/22/19 10:10 Zofran IV ONCE PRN Nausea And Vomiting Sodium Chloride 10 ml 01/22/19 10:00 01/22/19 09:25 Sodium Chloride Flush Syringe 10 Ml IV 10 ml BID BILLY Administration Sodium Chloride 10 ml 01/22/19 00:48 Sodium Chloride Flush Syringe 10 Ml IV PRN PRN LINE FLUSH
--- NOTE | 2019-01-22 15:43 | Post Anesthesia Evaluation ---
- Post Anesthesia Evaluation Patient Participated: Yes Airway Patent: Yes Stable Respiratory Function: Yes Nausea/Vomiting: No Temp > 96.8F: Yes Pain Manageable: Yes Adequeate Hydration: Yes Anesthesia Complications: No Block Receding Appropriately: Not Applicable Patient on Ventilator: No
[2019-01-22] MEDS: TORADOL IV SCH (18:29)
[2019-01-23] MEDS: TORADOL IV SCH ×3 (00:01→11:54)
[2019-01-23] MEDS: LACTATED RINGERS 1,000 ML IV SCH (02:34)
[2019-01-23] MEDS: MORPHINE IV PRN (04:27)
[2019-01-23] MEDS: ZOSYN/NS 4.5GM/100ML 4.5 GM/100 ML VIAL IV SCH ×2 (06:07→13:51)
--- NOTE | 2019-01-23 08:16 | Progress Note ---
Assessment and Plan - Patient Problems (1) Acute appendicitis Current Visit: Yes Status: Acute Qualifiers: Acute appendicitis type: with localized peritonitis Appendicitis gangrene presence: unspecified whether gangrene present Appendicitis perforation presence: unspecified whether perforation present Appendicitis abscess presence: without abscess Qualified Code(s): K35.30 - Acute appendicitis with localized peritonitis, without perforation or gangrene Plan to address problem: pt stable. s/p lap appy - 01/22/19 - POD#1 for gangrenous appendicitis. Pt doing well. May go home if tolerating diet and pain controlled. Rec: 1) possible d/c home today 2) f/u in office in 2 weeks. call for appt 3) diet as tolerated 4) may shower tomorrow. pat dry wounds 5) send home on Augmentin to complete 7 day course Please call with questions. Subjective Date of service: 01/23/19 Patient Reports: Positive: no new complaints, feels better, pain is less, tolerating liquids well. Negative: nausea, vomiting Objective Vital Signs - 12hr 01/22/19 01/23/19 01/23/19 23:45 00:31 04:20 Temperature 98.4 F 99.9 F H Pulse Rate 69 74 Respiratory 20 17 20 Rate Blood Pressure 108/65 114/68 O2 Sat by Pulse 96 97 Oximetry 01/23/19 01/23/19 04:27 06:12 Temperature Pulse Rate Respiratory 17 17 Rate Blood Pressure O2 Sat by Pulse Oximetry - General physical appearance no distress, no pain, other (looks better) - Respiratory normal expansion, normal respiratory effort - Abdomen soft, not distended, not guarding, not rigid, surgical scars (C/D/I) - Integumentary no rash, no growths, no abnormal pigmentation - Psychiatric oriented to time, oriented to person, oriented to place, speech is normal, memory intact - Labs 01/22/19 04:47 01/22/19 04:47
[2019-01-23] MEDS: SODIUM CHLORIDE FLUSH SYRINGE 10 ML IV SCH (09:45)
[2019-01-23 12:50] VITALS: BP 115/64
--- NOTE | 2019-01-23 13:00 | Discharge Summary ---
Providers - Providers Date of Admission: 01/21/19 23:32 Date of discharge: 01/23/19 Attending physician: MARK PURCELL 01/21/19 21:47 Consult to Physician [CONS] Urgent Comment: Dr. Silverman spoke with Dr. Beck @ [phone] Consulting Provider: SHABBIR BECK Physician Instructions: Reason For Exam: rlq pain peritonitis Primary care physician: [facility], Hospitalization Reason for admission: Abdominal pain/ Acute appendicitis Condition: Good Pertinent studies: CT abdomen pelvis: acute appendicitis,dilated appendis 15 mm Procedures: Acute gangrenous appendicitis necrotic appendix with small amount of localized purulent fluid s/p lap appendectomy Hospital course: 58 yr-old man with no medical problems was admitted through ER emergency room with complaints of abdominal pain that started 2 days ago located in the right lower quadrant which he describes a pressure-like sensation, intermittent CT abdomen revealed acute appendicitis.Admitted ,symptomatically managed with IV fluids,antibiotics, Evaluated by Surgery,Had lap appendectomy.Appendix was necrotic,received IV antibiotics and being discharged on oral antibiotics. Today patient feels better,no new complaints,Advance diet as tolerated Cleared by surgery to discharge and f/u per schedule Discharge Diagnosis: --Acute gangrenous Appendicitis: s/p Lap appendectomy, IV antibiotics, fluids and , painmeds and Clear liquids ,advance as tolerated --Febrile illness/sepsis; secondary to gangrenous appendix Resolved,on antibiotics --DVT prophylaxis: SCD Disposition: DC-01 TO HOME OR SELFCARE Time spent for discharge: 32 mmin Core Measure Documentation - Palliative Care Palliative Care/ Comfort Measures: Not Applicable - Core Measures Any of the following diagnoses?: none Exam - Constitutional Vitals: Temp Pulse Resp BP Pulse Ox 98.7 F 87 18 115/64 97 01/23/19 12:20 01/23/19 12:20 01/23/19 12:20 01/23/19 12:20 01/23/19 12:20 General appearance: Present: no acute distress, well-nourished - EENT Eyes: Present: PERRL, EOM intact - Neck Neck: Present: supple, normal ROM - Respiratory Respiratory effort: normal Respiratory: negative: rales, rhonchi, wheezing - Cardiovascular Rhythm: regular Heart Sounds: Present: S1 & S2 - Extremities Extremities: no ischemia, No edema - Abdominal General gastrointestinal: Present: soft, non-tender, non-distended, normal bowel sounds - Integumentary Integumentary: Present: clear, warm - Musculoskeletal Musculoskeletal: strength equal bilaterally - Psychiatric Psychiatric: appropriate mood/affect, cooperative - Neurologic Neurologic: CNII-XII intact, moves all extremities Plan Activity: advance as tolerated (soft diet and advance as tolerated) Diet: advance as tolerated Additional Instructions: Advance diet as tolerated Follow up with: PAT MONTALVO MD [Primary Care Provider] - 3-5 Days RAMÍREZ RICH MD [Staff Physician] - 14 Days Prescriptions: Amoxicillin/K Clav Tab [Augmentin 875 mg] 1 tab PO Q12HR #14 tab Ketorolac [Toradol] 10 mg PO Q8H PRN #15 tablet PRN Reason: Pain
== END 2019-01-23 14:49 | disposition home or self-care (01) | DRG 854 ==
LOC: ED 17:57 → 3B-SURG 23:32
PROVIDERS: ADMIT Internal Medicine; ATTEND Internal Medicine
PROC: 0DTJ4ZZ Resection of Appendix, Percutaneous Endoscopic Approach (ICD-10-PCS; principal; 2019-01-22)
PROC: 0DN83ZZ Release Small Intestine, Percutaneous Approach (ICD-10-PCS; 2019-01-22)
DX: A41.9 Sepsis, unspecified organism (principal); K35.31 Acute appendicitis with localized peritonitis and gangrene, without perforation; K66.0 Peritoneal adhesions (postprocedural) (postinfection)
CPT/HCPCS: 36415; 74177; 80048; 80053; 81001; 82140; 82550; 82962; 83735; 85007; 85025; 87040; 87086; 88304; 94760; 96374; 99285; G0378; J0330; J1170; J1885; J2270; J2405; J2543; J2704; J2710; J3370; J7030; J7120; Q9967